=== PATIENT | male | born 1945 | race Two or more races ===

== ENCOUNTER 2023-02-02 10:51 | Emergency (ER) | payer MEDICARE, OTHER ==
[~2023-02-02] VITALS: Ht 182.9 cm; Wt 83.9 kg
--- NOTE | 2023-02-02 11:12 | NUR ---
BIBS C/O COUGH, CONGESTION, BODYACHES, X 5 DAYS.
--- NOTE | 2023-02-02 11:25 | NUR ---
AT BEDSIDE FOR EVAL.
--- NOTE | 2023-02-02 11:48 | NUR ---
SWAB FOR RAPID INFLUENZA SENT TO LAB
--- NOTE | 2023-02-02 12:15 | NUR ---
X-RAY TECH AT BEDSIDE
[2023-02-02] MEDS ORDERED: AZIT250T13 PO (12:50)
[2023-02-02] MEDS ORDERED: BENZ-13 PO (12:50)
--- NOTE | 2023-02-02 13:01 | NUR ---
Patient discharged to home in stable condition. Written and verbal after care instructions given. Patient verbalizes understanding of instruction.
[2023-02-02 13:02] VITALS: BP 130/70
== END 2023-02-02 13:01 | disposition home or self-care (01) ==
LOC: ER 10:58
DX: J40 Bronchitis, not specified as acute or chronic (principal); R05.9 Cough, unspecified; Z60.2 Problems related to living alone; Z79.899 Other long term (current) drug therapy; Z88.0 Allergy status to penicillin
CPT/HCPCS: 71045-TC

== ENCOUNTER 2023-08-30 11:21 | Emergency (ER) | payer MEDICARE, OTHER ==
[~2023-08-30] VITALS: Ht 182.9 cm; Wt 68.5 kg
[~2023-08-30 11:21] MED LIST: AZIT250T13 PO; BENZ-13 PO
[2023-08-30] MEDS ORDERED: IBUP-1955 PO (12:31)
[2023-08-30] MEDS ORDERED: BENZ-13 PO (12:31)
[2023-08-30 12:44] VITALS: BP 128/80; TEMP 98.2; O2SAT 100
== END 2023-08-30 12:45 | disposition home or self-care (01) ==
LOC: ER 11:32
DX: J06.9 Acute upper respiratory infection, unspecified (principal); R05.9 Cough, unspecified; R09.81 Nasal congestion; Z79.899 Other long term (current) drug therapy; Z60.2 Problems related to living alone; Z88.0 Allergy status to penicillin